=== PATIENT | female | born 1950 | race Two or more races ===

== ENCOUNTER 2018-04-14 13:19 | Outpatient (CLI) | payer OTHER | END 2018-04-14 13:29 | disposition home or self-care (01) | LOC: RAD 13:19 | DX: Z12.31 Encounter for screening mammogram for malignant neoplasm of breast (principal); Z87.898 Personal history of other specified conditions; Z12.39 Encounter for other screening for malignant neoplasm of breast; J45.998 Other asthma ==

== ENCOUNTER → 2018-11-10 | Outpatient (CLI) | payer OTHER | END | disposition home or self-care (01) | LOC: NUCLEAR 11:00 | DX: M81.0 Age-related osteoporosis without current pathological fracture (principal) ==

== ENCOUNTER 2019-03-17 09:39 | Outpatient (CLI) | payer OTHER | END 2019-03-17 09:42 | disposition home or self-care (01) | LOC: RAD 09:39 | DX: I15.8 Other secondary hypertension (principal); I10 Essential (primary) hypertension ==

== ENCOUNTER 2020-10-09 07:58 | Outpatient (CLI) | payer OTHER | END 2020-10-09 08:04 | disposition home or self-care (01) | LOC: MAMO-SONO 07:58 | PROVIDERS: ATTEND Internal Medicine Cardiovascular Disease | DX: D24.1 Benign neoplasm of right breast (principal); Z12.31 Encounter for screening mammogram for malignant neoplasm of breast; N63.11 Unspecified lump in the right breast, upper outer quadrant ==

== ENCOUNTER 2020-10-09 11:38 | Outpatient (CLI) | payer OTHER | END 2020-10-09 11:53 | disposition home or self-care (01) | LOC: NUCLEAR 11:38 | PROVIDERS: ATTEND Internal Medicine Cardiovascular Disease | DX: M81.0 Age-related osteoporosis without current pathological fracture (principal); E55.9 Vitamin D deficiency, unspecified ==

== ENCOUNTER → 2021-04-09 | Outpatient (CLI) | payer OTHER | END | disposition home or self-care (01) | LOC: SONOGRAMA 07:00 → MAMO-SONO 09:00 | PROVIDERS: ATTEND Internal Medicine Cardiovascular Disease | DX: N63.11 Unspecified lump in the right breast, upper outer quadrant (principal) ==